=== PATIENT | male | born 1945 | race Caucasian/White ===

== ENCOUNTER 2019-01-06 13:01 | Emergency (ER) | payer OTHER ==
[~2019-01-06] VITALS: Ht 172.7 cm; Wt 72.6 kg
[2019-01-06] MEDS ORDERED: ATORVASTATIN CA20 MG (13:11)
== END 2019-01-06 18:52 | disposition home or self-care (01) ==
LOC: ER 13:01
DX: R42 Dizziness and giddiness (principal); R10.13 Epigastric pain